=== PATIENT | male | born 1995 ===

== ENCOUNTER 2017-06-05 15:02 | Emergency (ER) | payer BC ==
[2017-06-05 15:02] VITALS: BMI 22.8
[2017-06-05 15:12] VITALS: BP 124/56; PULSE 74; RESP 18; TEMP 98.2; O2SAT 99
[2017-06-05] MEDS ORDERED: Naproxen 500 MG TAB PO ONE ×2 (15:15→15:24)
--- NOTE | 2017-06-05 15:32 | ED PDOC ---
Lower Extremity Pain/Injury Time Seen by Provider: 06/05/17 15:12 Chief Complaint (Nursing): Lower Extremity Problem/Injury Chief Complaint (Provider): Right ankle pain History Per: Patient History/Exam Limitations: no limitations Onset/Duration Of Symptoms: Days (1), Waxing/Waning Additional Complaint(s): The patient is a 22yo male, presents to ED for evaluation of right ankle pain since yesterday s/p twisting it while walking down a flight of stairs. Pt reports he took Tylenol and applied "warm vinegar" to the area without much relief. He denies any numbness, tingling, right foot or knee pain. Pt offers no additional medical complaints. - Ankle/Foot Description Of Injury: Twisted Past Medical History Reviewed: Historical Data, Nursing Documentation, Vital Signs Vital Signs: Last Vital Signs Temp 98.2 F 06/05/17 15:10 Pulse 74 06/05/17 15:10 Resp 18 06/05/17 15:10 BP 124/56 L 06/05/17 15:10 Pulse Ox 99 06/05/17 15:10 - Medical History PMH: Asthma Denies: Depression - Surgical History Surgical History: Appendectomy - Family History Family History: States: No Known Family Hx - Home Medications Home Medications: Ambulatory Orders Medication Instructions Recorded Ibuprofen 600 mg PO Q6 #20 tab 05/06/15 - Allergies Allergies/Adverse Reactions: Allergies Allergy/AdvReac Type Severity Reaction Status Date / Time No Known Allergies Allergy Verified 06/05/17 15:10 Review of Systems ROS Statement: Except As Marked, All Systems Reviewed And Found Negative Musculoskeletal: Positive for: Foot Pain (right ankle pain) Neurological: Negative for: Weakness, Numbness Physical Exam - Reviewed Nursing Documentation Reviewed: Yes Vital Signs Reviewed: Yes - Physical Exam Appears: Positive for: Well, Non-toxic, No Acute Distress Head Exam: Positive for: ATRAUMATIC, NORMAL INSPECTION, NORMOCEPHALIC Skin: Positive for: Normal Color, Warm Eye Exam: Positive for: Normal appearance Neck: Positive for: Normal, Supple Cardiovascular/Chest: Positive for: Regular Rate, Rhythm Respiratory: Negative for: Respiratory Distress Pulses-Dorsalis Pedis (R): 2+ Extremity: Positive for: Normal ROM (normal ROM at right knee, ankle), Tenderness (right lateral malleolus with mild tenderness and swelling, no deformity noted. Right medial malleolus normal. No right foot or knee tenderness noted.), Capillary Refill (< 2 seconds). Negative for: Calf Tenderness, Deformity Neurologic/Psych: Positive for: Alert, Oriented - ECG O2 Sat by Pulse Oximetry: 99 (RA) Pulse Ox Interpretation: Normal - Radiology X-Ray: Interpreted by Me (Ankle x-ray) X-Ray Interpretation: No Acute Disease - Progress ED Course And Treament: Ankle immobilized in aircast splint by PA Crutches provided and instructions given. Medical Decision Making Medical Decision Making: Time: 1519 Impression: Right ankle injury Plan: -- XR Right Ankle -- Naproxen 500 mg PO -- Reassess Scribe Attestation: Documented by Irlanda Catalan acting as a scribe for CUATE Alex Provider Attestation: All medical record entries made by the Scribe were at my direction and personally dictated by me. I have reviewed the chart and agree that the record accurately reflects my personal performance of the history, physical exam, medical decision making, and the department course for this patient. I have also personally directed, reviewed, and agree with the discharge instructions and disposition. Disposition - Clinical Impression Clinical Impression: Ankle sprain - Patient ED Disposition Is Patient to be Admitted: No - Disposition Referrals: [facility] [Outside] Ankush Pablo MD [Staff Provider] - Disposition: Routine/Home Disposition Time: 16:05 Condition: STABLE Additional Instructions: Take Motrin 600mg every 6 hours with food as needed for pain. Instructions: Ankle Sprain (ED), Ankle Stirrup Splint (ED), Crutch Instructions (ED), RICE Therapy (ED) Print Language: WOLOF
--- NOTE | 2017-06-05 17:12 | RAD ---
PROCEDURE: Right Ankle Radiographs. HISTORY: trauma COMPARISON: None FINDINGS: BONES: Normal. No fracture. JOINTS: Normal. No osteoarthritis. Ankle mortise maintained. Talar dome intact SOFT TISSUES: Mild moderate soft tissue swelling over the lateral malleolus. Minimal medial soft tissue swelling. There may also be small joint effusion OTHER FINDINGS: None. IMPRESSION: No evidence of acute displaced fracture nor dislocation. If symptoms persist or occult fracture suspected clinically consider repeat radiographs in 5-10 days as most fractures should become radiographically evident in this timeframe. Mild to moderate lateral and minimal medial soft tissue swelling.
== END 2017-06-05 17:55 | disposition home or self-care (01) ==
LOC: H.ER 15:02
DX: S93.401A Sprain of unspecified ligament of right ankle, initial encounter (principal); X50.1XXA Overexertion from prolonged static or awkward postures, initial encounter; Y93.01 Activity, walking, marching and hiking; Y92.9 Unspecified place or not applicable

== ENCOUNTER 2018-09-05 04:21 | Emergency (ER) | payer BC ==
[2018-09-05 04:22] VITALS: BMI 22.8
[2018-09-05 04:44] VITALS: TEMP 98.1
--- NOTE | 2018-09-05 05:28 | ED PDOC ---
HPI: Chest Pain Time Seen by Provider: 09/05/18 04:30 Chief Complaint (Nursing): Chest Pain Chief Complaint (Provider): chest pain History Per: Patient History/Exam Limitations: no limitations Onset/Duration Of Symptoms: Hrs (x1.5) Current Symptoms Are (Timing): Still Present Additional Complaint(s): Gurwinder Cruz, a 23 year old male with no significant past medical history, presents to the emergency room with chest pain to mid sternal area onset 4 am. Patient reports eating a marijuana brownie last night at 2200 and woke up this morning at 0400 with chest pain and burning with slight radiation to left side. He states his chest has been hurting for a few days and recalls last week he was at the gym lifting weights and is unsure if he strained something. Patient denies fever cough or vomiting and reports the pain is mild now. He has never had symptoms like this before. No further medical complaints. Past Medical History Reviewed: Historical Data, Nursing Documentation, Vital Signs Vital Signs: Last Vital Signs Temp 98.1 F 09/05/18 04:37 Pulse 110 H 09/05/18 04:37 Resp 16 09/05/18 04:37 BP 145/81 09/05/18 04:37 Pulse Ox 98 09/05/18 04:37 - Medical History PMH: Asthma Denies: Depression - Surgical History Surgical History: Appendectomy - Family History Family History: States: Unknown Family Hx - Social History Ex-Smoker (has not smoked in the last 12 months): Yes - Home Medications Home Medications: Ambulatory Orders Medication Instructions Recorded RX: Ibuprofen 600 mg PO Q6 #20 tab 05/06/15 Naproxen [Naprosyn] 500 mg PO Q12H #20 tab 09/05/18 - Allergies Allergies/Adverse Reactions: Allergies Allergy/AdvReac Type Severity Reaction Status Date / Time No Known Allergies Allergy Verified 06/05/17 15:10 KEL Risk Score for UA/NSTEMI - KEL Risk Score Age > 64: NO 3 or more CAD Risk Factors: NO Known CAD (Stenosis greater than 50%): NO Aspirin use in past 7 days: NO Severe Angina: NO EKG ST changes greater than 0.5mm: NO Positive Cardiac Marker: NO KEL Score: 0 Risk %: 5% Curb-65 Severity Score - CURB-65 Severity Score Confusion: No Bun >19mg/dl (>7mmol/L): No Respiratory Rate greater than/equal to 30: No Systolic BP <90 or Diastolic BP less than/equal 60mmHg: No Age >64: No Curb-65 Score: 0 Percentage 30-day mortality: 0.6% Wells Criteria for PE - Wells Criteria for Pulmonary Embolism Clinical Signs and Symptoms of DVT: No P.E is #1 Diagnosis, or Equally Likely: No Heart Rate >100: No Immobilization at least 3 days;Surgery previous 4 weeks: No Previous, objectively diagnosed PE or DVT: No Hemoptysis: No Malignancy w/treatment within 6 months, or palliative: No Total Score: 0 Review of Systems ROS Statement: Except As Marked, All Systems Reviewed And Found Negative Constitutional: Negative for: Fever Cardiovascular: Positive for: Chest Pain (mid sternal area with slight radiation to left side), Other (chest burning) Respiratory: Negative for: Cough Gastrointestinal: Negative for: Vomiting Physical Exam - Reviewed Nursing Documentation Reviewed: Yes Vital Signs Reviewed: Yes - Physical Exam Appears: Positive for: Well, Non-toxic, No Acute Distress Head Exam: Positive for: ATRAUMATIC, NORMAL INSPECTION, NORMOCEPHALIC Skin: Positive for: Normal Color Eye Exam: Positive for: Normal appearance ENT: Positive for: Normal ENT Inspection Neck: Positive for: Normal, Painless ROM Cardiovascular/Chest: Positive for: Regular Rate, Rhythm, Chest Non Tender Respiratory: Positive for: Normal Breath Sounds. Negative for: Respiratory Distress Gastrointestinal/Abdominal: Positive for: Normal Exam, Soft Back: Positive for: Normal Inspection Extremity: Positive for: Normal ROM Neurologic/Psych: Positive for: Alert, Oriented, Other (sleeping on arrival) - Laboratory Results Result Diagrams: 09/05/18 05:54 09/05/18 05:54 - ECG O2 Sat by Pulse Oximetry: 98 (RA) Pulse Ox Interpretation: Normal Medical Decision Making Medical Decision Making: Time: 05:03 Initial Impression: chest pain - due to drugs versus muscular strain, pt with no cardiac risk factors Initial Plan: --CMP --Troponin --CBC w/ differential --Cxr --Ibuprofen 600 mg Time: 5:44 EKG: -normal sinus rhythm at 98 bpm pt better w motrin Time: 6:55 - labs, troponin, cxr normal, patient to be discharged -diagnosis: muscular 07:00 -Patient reports feeling better and thinks he may have strained his shoulder at the gym. pt stable for dc pending shoulder x-ray -Patient will be signed out to Dr. Juárez, pending shoulder x-ray. Scribe Attestation: Documented by Gabi Kolb, acting as a scribe for Vilma Stanton MD. Provider Scribe Attestation: All medical record entries made by the Scribe were at my direction and personally dictated by me. I have reviewed the chart and agree that the record accurately reflects my personal performance of the history, physical exam, medical decision making, and the department course for this patient. I have also personally directed, reviewed, and agree with the discharge instructions and disposition. Disposition - Clinical Impression Clinical Impression: Chest wall pain, Chest pain - Patient ED Disposition Is Patient to be Admitted: No Counseled Patient/Family Regarding: Studies Performed, Diagnosis, Need For Followup - Disposition Referrals: [facility] [Outside] [facility] [Outside] Disposition: Routine/Home Disposition Time: 06:55 Condition: IMPROVED Additional Instructions: follow up with your doctor/clinic this week take motrin for pain return to the ED with any worsening or concerning symptoms Prescriptions: Naproxen [Naprosyn] 500 mg PO Q12H #20 tab Instructions: Costochondritis Forms: [employer] ([place] Islander)
[2018-09-05 05:57] LABS: BASO # 0.1 K/uL (0.0-0.2); BASO % 0.9 % (0.0-2.0); EOS % 0.4 % (0.0-4.0); LYMPH # 1.2 K/uL (1.0-4.3); LYMPH % 10.2 % (20.0-40.0); MEAN CORPUSCULAR HEMOGLOBIN 30.3 pg (27.0-31.0); MEAN CORPUSCULAR HGB CONC 33.7 g/dL (33.0-37.0); MEAN PLATELET VOLUME 9.3 fl (7.2-11.7); MONO # 0.7 K/uL (0.0-0.8); MONO % 5.8 % (0.0-10.0); NEUT # 9.8 K/uL (1.8-7.0); NEUT % 82.7 % (50.0-75.0); NRBC % 0.1 % (0.0-0.0); RBC 4.62 Mil/uL (4.40-5.90); RED CELL DISTRIBUTION WIDTH 12.3 % (11.5-14.5); WHITE BLOOD COUNT 11.8 K/uL (4.8-10.8)
[2018-09-05 06:06] LABS: BLOOD UREA NITROGEN 14 mg/dl (9-20); GFR NON-AFRICAN AMERICAN > 60
[2018-09-05 06:07] LABS: ALB/GLOB RATIO 1.2 (1.0-2.1); ALBUMIN 4.7 g/dL (3.5-5.0); ALT/SGPT 17 U/L (21-72); AST/SGOT 27 U/L (17-59); CALCIUM 9.5 mg/dL (8.4-10.2)
[2018-09-05 08:34] VITALS: BP 140/80; PULSE 92; RESP 18
--- NOTE | 2018-09-05 10:43 | RAD ---
Date of service: 09/05/2018 HISTORY: chest pain COMPARISON: No prior. TECHNIQUE: Chest PA and lateral FINDINGS: LUNGS: No active pulmonary disease. PLEURA: No significant pleural effusion identified. No pneumothorax apparent. CARDIOVASCULAR: Normal. OSSEOUS STRUCTURES: No significant abnormalities. VISUALIZED UPPER ABDOMEN: Normal. OTHER FINDINGS: None. IMPRESSION: No acute cardiopulmonary disease appreciated.
--- NOTE | 2018-09-05 10:44 | RAD ---
Date of service: 09/05/2018 PROCEDURE: Radiographs of the Left Shoulder HISTORY: shoulder pain COMPARISON: No prior. FINDINGS: BONES: No acute fracture or destructive bony lesion identified. JOINTS: Normal. Glenohumeral and acromioclavicular joints preserved. No osteoarthritis. SOFT TISSUES: Normal. OTHER FINDINGS: None. IMPRESSION: Normal radiographs of the left shoulder.
[2018-09-06 18:25] VITALS: O2SAT 98
== END 2018-09-05 08:32 | disposition home or self-care (01) ==
LOC: H.ER 04:21
DX: R07.89 Other chest pain (principal); J45.909 Unspecified asthma, uncomplicated; Z87.891 Personal history of nicotine dependence